=== PATIENT | female | born 1980 | race Caucasian/White ===

== ENCOUNTER 2017-04-30 06:47 | Emergency (ER) | payer BC ==
[~2017-04-30] VITALS: Ht 162.6 cm; Wt 81.2 kg
[~2017-04-30 06:47] MED LIST: MOTRIN800 MG PO; PERCOCET 5/31 TABLET PO; TOPROL XL50 MG PO
[2017-04-30] MEDS ORDERED: ADVIL200 MG PO (07:39)
[2017-04-30] MEDS ORDERED: NAPROSYN500 MG PO (07:59)
[2017-04-30 08:27] VITALS: BP 132/86
== END 2017-04-30 08:28 | disposition home or self-care (01) ==
LOC: EME 06:47
DX: S93.402A Sprain of unspecified ligament of left ankle, initial encounter (principal); W17.89XA Other fall from one level to another, initial encounter; F17.200 Nicotine dependence, unspecified, uncomplicated
CPT/HCPCS: 73610; 99281; 99284